=== PATIENT | male | born 1940 | race Caucasian/White ===

== ENCOUNTER 2020-05-10 12:23 | Observation (INO) | payer MEDICARE ==
[~2020-05-10] VITALS: Ht 177.8 cm; Wt 83.5 kg
[2020-05-10] MEDS ORDERED: GLUCAGON INJ 1MG VIAL SC PRN (13:30)
[2020-05-10] MEDS ORDERED: DEXTROSE 50% 50 ML SYRINGE IV PRN (13:30)
[2020-05-10] MEDS ORDERED: GLUCOSE 4GM CHEW TABLET PO PRN (13:30)
[2020-05-10] MEDS ORDERED: ISOVUE-370 76% 100ML VIAL As Ordered ONE (13:51)
[2020-05-10 14:24] LABS: BASO % 0.2 % (0.0-1.0); HEMATOCRIT 50.2 % (42.0-52.0); HEMOGLOBIN 16.3 g/dl (13.5-17.5); LYMPH # 0.4 10^3/uL (1.5-5.0); LYMPH % 2.3 % (24.0-44.0); MEAN CORPUSCULAR HEMOGLOBIN 28.6 pg (27.0-33.0); MEAN CORPUSCULAR HGB CONC 32.5 g/dl (32.0-36.5); MEAN CORPUSCULAR VOLUME 88.1 fl (80.0-96.0); MONO # 0.2 10^3/uL (0.0-0.8); MONO % 1.1 % (0.0-5.0); NEUTROPHILS # 16.3 10^3/uL (1.5-8.5); NEUTROPHILS % 95.6 % (36.0-66.0); PLATELET COUNT, AUTOMATED 284 10^3/uL (150-450); WHITE BLOOD COUNT 17.1 10^3/uL (4.0-10.0)
[2020-05-10 14:34] LABS: INR 0.97; PROTHROMBIN TIME 13.1 SECONDS (12.5-14.3)
[2020-05-10 14:35] LABS: PARTIAL THROMBOPLASTIN TIME 29.8 SECONDS (24.2-38.5)
--- NOTE | 2020-05-10 14:48 | REPVR ---
PROCEDURE INFORMATION: Exam: CT Neck With Contrast Exam date and time: 05/10/2020 2:05 PM Age: 79 years old Clinical indication: Other: Stat read-uvula edema R/O airway obstruction TECHNIQUE: Imaging protocol: Computed tomography images of the neck with intravenous contrast. Radiation optimization: All CT scans at this facility use at least one of these dose optimization techniques: automated exposure control; mA and/or kV adjustment per patient size (includes targeted exams where dose is matched to clinical indication); or iterative reconstruction. Contrast material: ISOVUE 370; Contrast volume: 100 ml; Contrast route: INTRAVENOUS (IV); COMPARISON: No relevant prior studies available. FINDINGS: Nasopharynx: Narrowing of nasopharynx. Oropharynx:Prominence of uvula. Assymmetric edema left palatine tonsil. Mild inflammatory changes in left parapharyngeal fat. Hypopharynx: Effacement of left piriform sinus.. Thickened left aryepiglottic fold. Larynx: Unremarkable. Normal epiglottis. Retropharyngeal space: Unremarkable. Submandibular/Parotid glands: Normal. Glands are normal in size. Thyroid: Normal. No enlarged or calcified nodules. Lymph nodes: Unremarkable. No lymphadenopathy. Trachea: Visualized trachea is unremarkable. Lungs: Unremarkable as visualized. 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 No acute fracture. Sinuses: Minimal mucosal thickening within the maxillary sinuses. Soft tissues: Unremarkable. No significant soft tissue swelling. Other findings: Motion artifact degrades image quality. IMPRESSION: 1. Soft tissue edema involving the soft palate, uvula, left palatine tonsil extending inferiorly to the left aryepiglottic fold and effacement left piriform sinus. 2. Narrowed nasopharynx. The oral pharynx hypopharynx and larynx are normal with no evidence of airway obstruction. 3. Mild inflammatory changes in the left parapharyngeal fat Electronically signed by: Jacquelyn Antunez On 05/10/2020 14:47:58 PM
[2020-05-10 14:49] LABS: ALBUMIN 3.7 GM/DL (3.2-5.2); ALT/SGPT 21 U/L (12-78); BILIRUBIN,TOTAL 0.6 MG/DL (0.2-1.0); BLOOD UREA NITROGEN 14 MG/DL (7-18); C REACTIVE PROTEIN QUANTITATIV 4.71 MG/DL (0.00-0.30); CALCIUM LEVEL 8.7 MG/DL (8.8-10.2); CARBON DIOXIDE LEVEL 26 MEQ/L (21-32); CHLORIDE LEVEL 107 MEQ/L (98-107); CREATININE FOR GFR 0.95 MG/DL (0.70-1.30); GLOMERULAR FILTRATION RATE > 60.0 (>42); GLUCOSE, FASTING 150 MG/DL (70-100); NT-PRO BNP 338 PG/ML (<450); POTASSIUM SERUM 4.1 MEQ/L (3.5-5.1); SODIUM LEVEL 141 MEQ/L (136-145); TOTAL PROTEIN 7.8 GM/DL (6.4-8.2)
[2020-05-10 14:52] LABS: ERYTHROCYTE SEDIMENTATION RATE 118 mm/hr (0-20)
[2020-05-10] MEDS ORDERED: METO1TAB87 PO (15:19)
[2020-05-10] MEDS ORDERED: ASPI81TA26 PO (15:19)
--- NOTE | 2020-05-10 15:33 | HPEPDOC ---
[facility] Medical History & Physical Date of Admission May 10, 2020 Date of Service: May 10, 2020 History and Physical CHIEF COMPLAINT: "I can't swallow." HISTORY OF PRESENT ILLNESS: 79 m w HTN had dental extraction on the right 2wks ago, left side 1 wk ago complicated by broken tooth filling, and instructed that some swelling may occur, presented to [facility] ER with 4-5 days h/o increased neck pain, swelling,and dysphagia to solids without fever or chills. He denied any shortness of breath, stridor, or feeling suffocated. He denies any hoarseness of the voice, but admits to choking sensation when he eats solids. no weight loss, chills. In the ER, he was given decadron, and transferred to [facility] for ENT evaluation for airway compromise and possible tracheostomy. Pt is able to speak in full sentences without drooling or use of accessory respiratory muscles. On Arrival to [facility] ICU, pt was able to speak clearly without difficulty saturating 94-96% on 2liters nasal cannula. Pt denies any recent URI symptoms, rhinorrhea, sore throat, cough, sob, n/v/d/abd pain, and denies other constitutional symptoms such as weight gain, weight loss, insomnia, but admits to decreased appetite due to dysphagia and discomfort. He denies any chest pain, pressure, tightness, dizziness,lightheadedness, near syncope, bilateral UE and LE weakness paresthesias, dysuria, urgency, frequency, flank pain, chills, diarrhea, constipation, odynophagia, brbpr, black tarry stools, or melena. PAST MEDICAL HISTORY: HTN PAST SURGICAL HISTORY: none SOCIAL HISTORY: retired, previously worked in the [employer], denies smoking or ETOH abuse. FAMILY HISTORY: mother and father ages 93,97 unknown medical problems. ALLERGIES: NKDA REVIEW OF SYSTEMS: 10 point ROS negative aside from (+) findings on HPI. HOME MEDICATIONS: Please see below. PHYSICAL EXAMINATION: VITAL SIGNS: see below GENERAL APPEARANCE: AAOx3. speaks in full sentences without use of accessory respiratory muscles. edema along neck with cervical LAD. HEENT: no stridor. edema with mild erythema nontender along mandible on left face down the neck. no subcutaneous emphysema. no JVD, no thyromegaly CARDIOVASCULAR: S1S2 RRR no murmurs. no carotid bruits. LUNGS: CTAB AEBE no wheezing ABDOMEN: (+) BS soft NTND no HSM EXTREMITIES: (-)cyanosis, clubbing or bilateral LE edema LABORATORY DATA: See below. IMAGING: CT Neck with contrast: (per virtual radiologist) edema from uvula to soft palate. swelling on the left palatine along hypopharynx . epiglottis and vocal cords are ok. no airway compromise. formal report to follow. Official Report 05/10/20 Ct Neck with contrast. IMPRESSION: 1. Soft tissue edema involving the soft palate, uvula, left palatine tonsil extending inferiorly to the left aryepiglottic fold and effacement left piriform sinus. 2. Narrowed nasopharynx. The oral pharynx hypopharynx and larynx are normal with no evidence of airway obstruction. 3. Mild inflammatory changes in the left parapharyngeal fat Electronically signed by: Jacquelyn Antunez On 05/10/2020 14:47:58 PM MICROBIOLOGY: Please see below. ASSESSMENT: 79M w HTN, recent teeth extraction 2 wks ago, and again 1 wk ago with 4-5day c/o dysphagia and left neck swelling, found to have uvula edema and transferred to [facility] for ENT services to evaluate for airway compromise and possible trach placement. Edema of Uvula Suspected Face/neck cellulitis Dysphagia to solids due to edema HTN Recent tooth extraction PLAN: empiric clindamycin, decadron 10mg iv q6h. ct neck-no airway compromise. npo until evaluated by ENT with laryngoscopy. will await further ENT recomm endations. compression stockings. resume on metoprolol for HTN. stat covid test, rapid strep test. hypoglycemic protocol / IVF and fingersticks while npo. FULL code. Laboratory Data Labs 24H Laboratory Tests 2 05/10/20 13:56: Immature Granulocyte % (Auto) 0.8, Neutrophils (%) (Auto) 95.6H, Lymphocytes (%) (Auto) 2.3L, Monocytes (%) (Auto) 1.1, Eosinophils (%) (Auto) 0.0, Basophils (%) (Auto) 0.2, Neutrophils # (Auto) 16.3H, Lymphocytes # (Auto) 0.4L, Monocytes # (Auto) 0.2, Eosinophils # (Auto) 0.0, Basophils # (Auto) 0.0, Nucleated Red B lood Cells % (auto) 0.0, Erythrocyte Sedimentation Rate 118H, Prothrombin Time 13.1, Prothromb Time International Ratio 0.97, Activated Partial Thromboplast Time 29.8, Anion Gap 8, Glomerular Filtration Rate > 60.0, Lactic Acid Level 1.5, Calcium Level 8.7L, Total Bilirubin 0.6, Aspartate Amino Transf (AST/SGOT) 16, Alanine Aminotransferase (ALT/SGPT) 21, Alkaline Phosphatase 93, C-Reactive Protein, Quantitative 4.71H, BD-Odm-O-Type Natriuretic Peptide 338, Total Protein 7.8, Albumin 3.7, Albumin/Globulin Ratio 0.9 05/10/20 14:27: CBC/BMP Laboratory Tests 05/10/20 13:56 Microbiology Microbiology 05/10/20 Blood Culture, Received Pending Home Medications Scheduled Aspirin (Aspirin EC) 81 Mg Tablet.dr, 81 MG PO DAILY Metoprolol Tartrate (Metoprolol Tartrate) 25 Mg Tablet, 25 MG PO DAILY A-FIB/CHADSVASC A-FIB History Current/History of A-Fib/PAF?: No Current PO Anticoag Therapy: No Age/Risk Factor Scoring CHADSVASC: CHADSVASC Response (Comments) Value Age Risk Factor Age >/= 75 years old 2 Gender Risk Factor Male 0 Hx of CHF No 0 Hx of HTN Yes 1 Hx of Stroke/TIA/or VTE No 0 Hx of Diabetes No 0 Hx of Vascular Disease No 0 Total 3 Treatment Treatment ordered: NONE SLIME AARON MD May 10, 2020 15:15
--- NOTE | 2020-05-10 15:49 | ECGEPIP ---
[facility] Test Date: 2020-05-10 Pat Name: RAISSA BRADLEY Department: Room: [place] [address] Gender: Male Division Supervisor: KARUNA : 1940 Requested By: SLIME Santiago Order Number: [id number] Reading MD: Farhana Franklin Measurements Intervals [place] Rate: 87 P: 64 WI: 194 QRS: 93 QRSD: 141 T: 26 QT: 399 QTc: 483 Interpretive Statements SINUS RHYTHM RIGHT BUNDLE BRANCH BLOCK PROLONG QTC STT ABNORMALITY LEFT PRECODIAL LEADS NO PRIOR BPRDERLINE RT AXIS Electronically Signed on 05-10-2020 15:48:51 EDT by Farhana Franklin
[2020-05-10 16:00] VITALS: BP 182/82
[2020-05-10] MEDS ORDERED: D5W/0.45% SODIUM CHLORIDE 1,000 ML IV SCH (16:00)
[2020-05-10] MEDS: dexameTHASONE 4 MG/ML 1ML VIAL (J1100 PER 1MG) IV SCH ×2 (16:24→22:38)
[2020-05-10] MEDS: CLINDAMYCIN 600 MG in IV 1 EA IV SCH ×2 (16:24→22:38)
[2020-05-10] MEDS: METOPROLOL TART 25 MG TABLET PO SCH (16:35)
[2020-05-10] MEDS ORDERED: CLIN150C14 PO (16:55)
[2020-05-10] MEDS ORDERED: BACI1CAP PO (16:55)
[2020-05-10] MEDS ORDERED: DECA4TAB PO (17:00)
[2020-05-10 19:25] VITALS: BP 146/80
--- NOTE | 2020-05-10 22:34 | REPVR ---
PROCEDURE INFORMATION: Exam: XR Chest, 2 Views Exam date and time: 05/10/2020 10:28 PM Age: 79 years old Clinical indication: Other: SOB sysphagia; Additional info: SOB dysphagia TECHNIQUE: Imaging protocol: XR of the chest Views: 2 views. COMPARISON: No relevant prior studies available. FINDINGS: Lungs: Degree of inflation of the lungs is normal. No evidence of pulmonary edema. No focal airspace process. No concerning parenchymal lung mass. Pleural space: No pleural effusion or pneumothorax. Heart/Mediastinum: Cardiac silhouette appears normal. No mediastinal adenopathy or hilar mass. Bones/joints: Osseous structures show no acute or concerning abnormality. IMPRESSION: No active or focal cardiopulmonary process. Electronically signed by: Serjio Knight On 05/10/2020 22:34:04 PM
[2020-05-11] VITALS: BP 157/71
[2020-05-11 04:00] VITALS: BP 161/71
[2020-05-11] MEDS: dexameTHASONE 4 MG/ML 1ML VIAL (J1100 PER 1MG) IV SCH ×2 (04:40→09:08)
[2020-05-11] MEDS: CLINDAMYCIN 600 MG in IV 1 EA IV SCH (04:40)
[2020-05-11 05:40] LABS: BASO % 0.1 % (0.0-1.0); HEMATOCRIT 41.8 % (42.0-52.0); LYMPH # 0.7 10^3/uL (1.5-5.0); LYMPH % 4.1 % (24.0-44.0); MEAN CORPUSCULAR HEMOGLOBIN 28.1 pg (27.0-33.0); MEAN CORPUSCULAR HGB CONC 32.5 g/dl (32.0-36.5); MEAN CORPUSCULAR VOLUME 86.4 fl (80.0-96.0); MONO # 0.5 10^3/uL (0.0-0.8); MONO % 2.7 % (0.0-5.0); NEUTROPHILS # 16.1 10^3/uL (1.5-8.5); NEUTROPHILS % 92.3 % (36.0-66.0); PLATELET COUNT, AUTOMATED 255 10^3/uL (150-450); RED BLOOD COUNT 4.84 10^6/uL (4.30-6.10); WHITE BLOOD COUNT 17.4 10^3/uL (4.0-10.0)
[2020-05-11 05:47] LABS: HEMOGLOBIN 13.6 g/dl (13.5-17.5)
[2020-05-11 06:14] LABS: BLOOD UREA NITROGEN 16 MG/DL (7-18); CALCIUM LEVEL 8.3 MG/DL (8.8-10.2); CARBON DIOXIDE LEVEL 24 MEQ/L (21-32); CHLORIDE LEVEL 109 MEQ/L (98-107); CREATININE FOR GFR 0.91 MG/DL (0.70-1.30); GLOMERULAR FILTRATION RATE > 60.0 (>42); GLUCOSE, FASTING 166 MG/DL (70-100); SODIUM LEVEL 142 MEQ/L (136-145)
[2020-05-11 08:00] VITALS: BP 154/74
[2020-05-11] MEDS ORDERED: CLIN150C14 PO (08:53)
[2020-05-11] MEDS ORDERED: BACI1CAP PO (08:54)
[2020-05-11] MEDS ORDERED: CLINDAMYCIN 600 MG in IV 1 EA IV ONE (09:00)
--- NOTE | 2020-05-11 09:02 | DS.PDOC ---
Discharge Summary General Date of Admission May 10, 2020 at 13:45 Date of Discharge 2019 Discharge Summary PROCEDURES PERFORMED DURING STAY: Direct laryngoscopy 05/10/20 LITIGATION PARALEGAL: ENT Dr. Calhoun DISCHARGE DIAGNOSES: Edema of Uvula Suspected Face/neck cellulitis Dysphagia to solids due to edema HTN Recent teeth extraction, complicated by broken fillings COVID-19 NEGATIVE COMPLICATIONS/CHIEF COMPLAINT: Uvular Edema. HISTORY OF PRESENT ILLNESS: 79 m w HTN had dental extraction on the right 2wks ago, left side 1 wk ago complicated by broken tooth filling, and instructed that some swelling may occur, presented to [facility] ER with 4-5 days h/o increased neck pain, swelling,and dysphagia to solids without fever or chills. He denied any shortness of breath, stridor, or feeling suffocated. He denies any hoarseness of the voice, but admits to choking sensation when he eats solids. no weight loss, chills. In the ER, he was given decadron, and transferred to [facility] for ENT evaluation for airway compromise and possible tracheostomy. Pt is able to speak in full sentences without drooling or use of accessory respiratory muscles. On Arrival to [facility] ICU, pt was able to speak clearly without difficulty saturating 94-96% on 2liters nasal cannula. Pt denies any recent URI symptoms, rhinorrhea, sore throat, cough, sob, n/v/d/abd pain, and denies other constitutional symptoms such as weight gain, weight loss, insomnia, but admits to decreased appetite due to dysphagia and discomfort. He denies any chest pain, pressure, tightness, dizziness,lightheadedness, near syncope, bilateral UE and LE weakness paresthesias, dysuria, urgency, frequency, flank pain, chills, diarrhea, constipation, odynophagia, brbpr, black tarry stools, or melena. HOSPITAL COURSE: He underwent direct laryngoscopy after being admitted to ICU, and per ENT had early abscess and cellulitis. ENT recommended IV clindamycin, decadron 10mg iv q6h. ct neck-no airway compromise. compression stockings were given for DVT prophylaxis. He was resumed on metoprolol for HTN. stat covid test prior to laryngoscopy was negative.He was placed on a soft diet post laryngoscopy, and had complete resolution of the edema along the left neck, with no respiratory issues overnight. He was instructed to complete 10 days of antibiotics, and tapered dose of decadron after discharge. DISCHARGE MEDICATIONS: Please see below. ALLERGIES: Please see below. PHYSICAL EXAMINATION ON DISCHARGE: VITAL SIGNS: Please see below. VITAL SIGNS: see below GENERAL APPEARANCE: AAOx3. speaks in full sentences without use of accessory respiratory muscles. NO edema or erythema along left neck HEENT: no stridor. no subcutaneous emphysema. no JVD, no thyromegaly CARDIOVASCULAR: S1S2 RRR no murmurs. no carotid bruits. LUNGS: CTAB AEBE no wheezing ABDOMEN: (+) BS soft NTND no HSM EXTREMITIES: (-)cyanosis, clubbing or bilateral LE edema LABORATORY DATA: Please see below. IMAGING STUDY: 05/10/20 Ct Neck with contrast. 1. Soft tissue edema involving the soft palate, uvula, left palatine tonsil extending inferiorly to the left aryepiglottic fold and effacement left piriform sinus. 2. Narrowed nasopharynx. The oral pharynx hypopharynx and larynx are normal with no evidence of airway obstruction. 3. Mild inflammatory changes in the left parapharyngeal fat Electronically signed by: Jacquelyn Antunez On 05/10/2020 14:47:58 PM DIET: soft mechanical diet DISCHARGE INSTRUCTIONS: ENT fu within 1-2wks Dr. Calhoun. PCP within 5 days. DISCHARGE CONDITION: stable TIME SPENT ON DISCHARGE: 30 minutes. Vital Signs/I&Os Vital Signs Date Time Temp Pulse Resp B/P (MAP) Pulse Ox O2 Delivery O2 Flow Rate FiO2 05/11/20 08:00 98.0 85 18 154/74 (100) 93 Room Air I&O- Last 24 Hours up to 6 AM 05/11/20 06:00 Intake Total 170 ml Output Total 475 ml Balance -305 ml Laboratory Data Labs 24H Laboratory Tests 2 05/10/20 13:56: Immature Granulocyte % (Auto) 0.8, Neutrophils (%) (Auto) 95.6H, Lymphocytes (%) (Auto) 2.3L, Monocytes (%) (Auto) 1.1, Eosinophils (%) (Auto) 0.0, Basophils (%) (Auto) 0.2, Neutrophils # (Auto) 16.3H, Lymphocytes # (Auto) 0.4L, Monocytes # (Auto) 0.2, Eosinophils # (Auto) 0.0, Basophils # (Auto) 0.0, Nucleated Red Blood Cells % (auto) 0.0, Erythrocyte Sedimentation Rate 118H, Prothrombin Time 13.1, Prothromb Time International Ratio 0.97, Activated Partial Thromboplast Time 29.8, Anion Gap 8, Glomerular Filtration Rate > 60.0, Lactic Acid Level 1.5, Calcium Level 8.7L, Total Bilirubin 0.6, Aspartate Amino Transf (AST/SGOT) 16, Alanine Aminotransferase (ALT/SGPT) 21, Alkaline Phosphatase 93, C-Reactive Protein, Quantitative 4.71H, CL-Feq-P-Type Natriuretic Peptide 338, Total Protein 7.8, Albumin 3.7, Albumin/Globulin Ratio 0.9 05/10/20 14:27: Coronavirus (COVID-19)(PCR) NEGATIVE 05/11/20 05:21: Immature Granulocyte % (Auto) 0.8, Neutrophils (%) (Auto) 92.3H, Lymphocytes (%) (Auto) 4.1L, Monocytes (%) (Auto) 2.7, Eosinophils (%) (Auto) 0.0, Basophils (%) (Auto) 0.1, Neutrophils # (Auto) 16.1H, Lymphocytes # (Auto) 0.7L, Monocytes # (Auto) 0.5, Eosinophils # (Auto) 0.0, Basophils # (Auto) 0.0, Nucleated Red Blood Cells % (auto) 0.0, Anion Gap 9, Glomerular Filtration Rate > 60.0, Calcium Level 8.3L CBC/BMP Laboratory Tests 05/10/20 13:56 05/11/20 05:21 Microbiology Microbiology 05/10/20 Blood Culture, Received Pending Discharge Medications Scheduled Aspirin (Aspirin EC) 81 Mg Tablet.dr, 81 MG PO DAILY, (Reported) Bacillus Coagulans (Bacid with Lactospore) 1 Each Capsule, 1 CAP PO [facility] Clindamycin Hcl (Clindamycin HCl) 150 Mg Capsule, 150 MG PO QID Dexamethasone (Decadron) 4 Mg Tablet, 4 MG PO Q6H taper decadron 4mg q6hrs x 2 days then, 4mg q8hrs x 2 days then, 4mg q12hrs x 2days then, 4mg daily x 2 days then dc Metoprolol Tartrate (Metoprolol Tartrate) 25 Mg Tablet, 25 MG PO DAILY, (Reported) Allergies Coded Allergies: No Known Allergies (Unverified , 05/10/20) SLIME AARON MD May 11, 2020 09:01
[2020-05-11 09:08] VITALS: BP 154/74
[2020-05-11] MEDS: METOPROLOL TART 25 MG TABLET PO SCH (09:08)
== END 2020-05-11 10:27 | disposition home or self-care (01) ==
LOC: M ICU 13:45 → M PCU 19:26
PROVIDERS: ADMIT General Practice; ATTEND General Practice
DX: J39.8 Other specified diseases of upper respiratory tract (principal); R13.10 Dysphagia, unspecified; L03.211 Cellulitis of face; I10 Essential (primary) hypertension; Z79.82 Long term (current) use of aspirin; Z79.899 Other long term (current) drug therapy
CPT/HCPCS: 36415; 70491; 71046; 80048; 80053; 83605; 83880; 84145; 85025; 85610; 85652; 85730; 86140; 87040; 93005; 96365; 96366; 96375; 96376; G0378; J1100; Q9967; U0002